=== PATIENT | male | born 1975 | race African-American/Black ===

== ENCOUNTER 2016-04-06 22:15 | Emergency (ER) | payer OTHER ==
[2016-04-07 00:20] LABS: ABSOLUTE BASOPHILS # (AUTO) 0.1 10^3/uL (0.0-0.2); ABSOLUTE EOSINOPHILS # (AUTO) 0.3 10^3/uL (0.0-0.6); ABSOLUTE LYMPHOCYTES (AUTO) 2.4 10^3/uL (0.5-4.7); ABSOLUTE MONOCYTES (AUTO) 0.6 10^3/uL (0.1-1.4); ABSOLUTE NEUT (AUTO) 6.5 10^3/uL (1.7-8.2); BASOPHILS % (AUTO) 0.7 % (0-2); HEMATOCRIT 47.8 % (37.9-51.0); HEMOGLOBIN 15.8 g/dL (13.5-17.0); HGB HCT DIFFERENCE -0.4; LYMPHOCYTES % (AUTO) 24.7 % (13-45); MEAN CORPUSCULAR HEMOGLOBIN 31.9 pg (27.0-33.4); MEAN CORPUSCULAR HGB CONC 33.2 g/dL (32.0-36.0); MEAN CORPUSCULAR VOLUME 96 fl (80-97); MONOCYTES % (AUTO) 5.7 % (3-13); RED BLOOD COUNT 4.97 10^6/uL (4.35-5.55); RED CELL DISTRIBUTION WIDTH 13.2 % (11.5-14.0); SEGMENTED NEUTROPHILS % (AUTO) 65.9 % (42-78); WHITE BLOOD COUNT 9.8 10^3/uL (4.0-10.5)
[2016-04-07 00:30] LABS: ALANINE AMINOTRANSFERASE 22 U/L (21-72); ALBUMIN 5.2 g/dL (3.5-5.0); ALKALINE PHOSPHATASE 115 U/L (38-126); ANION GAP 17 (5-19); ASPARTATE AMINO TRANSFERASE 20 U/L (17-59); BILIRUBIN,TOTAL 2.1 mg/dL (0.2-1.3); BLOOD UREA NITROGEN 12 mg/dL (7-20); CALCIUM 10.2 mg/dL (8.4-10.2); CARBON DIOXIDE 28 mmol/L (22-30); CHLORIDE 102 mmol/L (98-107); CREATININE RESULT 0.98 mg/dL (0.52-1.25); GLUCOSE 83 mg/dL (75-110); POTASSIUM 3.7 mmol/L (3.6-5.0); SODIUM 147.4 mmol/L (137-145); TOTAL PROTEIN 7.9 g/dL (6.3-8.2)
[2016-04-07 00:34] LABS: ALCOHOL < 10 mg/dL (NONE DETECTED)
[2016-04-07 00:52] LABS: APPEARANCE,URINE SLIGHTLY-CLOUDY; BILIRUBIN,URINE SMALL (NEGATIVE); GLUCOSE, URINE NEGATIVE (NEGATIVE); KETONES,URINE 20 mg/dL (NEGATIVE); LEUKOCYTE ESTERASE,URINE MODERATE (NEGATIVE); NITRITE,URINE NEGATIVE (NEGATIVE); PROTEIN,URINE 30 mg/dL (NEGATIVE); URINE SPECIFIC GRAVITY 1.029
--- NOTE | 2016-04-07 01:04 | ER Document Report ---
ED General - General Chief Complaint: Psych Problem Stated Complaint: PSYCH EVAL Time seen by provider: 01:03 Mode of Arrival: Ambulatory Information source: Patient Notes: This is a 41-year-old man with a history of schizophrenia (as reported by sister , on no meds currently) brought in by mobile crisis because of suicidal ideation , plans to kill himself (run in front of traffic or jump in the river). Patient states that he got an argument with his parents (he lives with them) and "the word kill came up in the discussion". Patient states he walked out of the house could as he was afraid that he was going to do something because of his "anger". Mobile blasting worker at the bedside: Rubi Schaefer: [phone] TRAVEL OUTSIDE OF THE [place] IN LAST 30 DAYS: No - HPI Onset: Last week Onset/Duration: Gradual Quality of pain: No pain Severity: None Pain Level: Denies Associated symptoms: denies: Chills, Fever, Shortness of breath Exacerbated by: Denies Relieved by: Denies Similar symptoms previously: Yes Recently seen / treated by doctor: No - Related Data Allergies/Adverse Reactions: No Known Allergies Allergy (Verified 08/26/12 22:18) Past Medical History - General Information source: Patient - Social History Smoking Status: Current Every Day Smoker Cigarette use (# per day): No Chew tobacco use (# tins/day): No Frequency of alcohol use: Rare Drug Abuse: Marijuana Lives with: Family Family History: Reviewed & Not Pertinent Patient has suicidal ideation: Yes Patient has homicidal ideation: Yes - Medical History Medical History: Negative Psychiatric Medical History: Reports: Hx Depression, Hx Schizophrenia Surgical Hx: Negative - Immunizations Immunizations up to date: Yes Hx Diphtheria, Pertussis, Tetanus Vaccination: Yes Review of Systems - Review of Systems Constitutional: denies: Chills, Fever EENT: No symptoms reported Cardiovascular: No symptoms reported Respiratory: No symptoms reported Gastrointestinal: No symptoms reported Genitourinary: No symptoms reported Male Genitourinary: No symptoms reported Musculoskeletal: No symptoms reported Skin: No symptoms reported Hematologic/Lymphatic: No symptoms reported Neurological/Psychological: See HPI Physical Exam - Vital signs Vitals: Temp Pulse Resp BP Pulse Ox 98.6 F 60 16 158/106 H 97 04/06/16 22:31 04/06/16 22:31 04/06/16 22:31 04/06/16 22:31 04/06/16 22:31 Notes: Physical exam: GENERAL: HEAD: Atraumatic, normocephalic. EYES: Pupils equal round and reactive to light, extraocular movements intact, sclera anicteric, conjunctiva are normal. ENT: TMs normal, nares patent, oropharynx clear without exudates. Moist mucous membranes. NECK: Normal range of motion, supple without lymphadenopathy or JVD. LUNGS: Breath sounds clear to auscultation bilaterally and equal. No wheezes rales or rhonchi. HEART: Regular rate and rhythm without murmurs, rubs or gallops. ABDOMEN: Soft, nontender, normoactive bowel sounds. No guarding, no rebound. No masses appreciated. EXTREMITIES: Normal range of motion, no pitting or edema. No clubbing or cyanosis. NEUROLOGICAL: Cranial nerves II through XII grossly intact. Normal speech, normal gait. PSYCH: Patient has been having paranoid thoughts, problem with anger. [facility] notes that the patient has had suicidal thoughts. SKIN: Warm, Dry, normal turgor, no rashes or lesions noted. Course - Re-evaluation Re-evalutation: The patient was brought in by [facility] for evaluation. The patient has been agreeable for evaluation, so he is not an IVC at this point. 04/07/16 03:08 04/07/16 03:09 Note: The patient's labs are normal. His urine sample looked dark. It did not look like a midstream clean catch. He does not have any symptoms of a UTI. The plan will be to repeat a urine specifically for Chlamydia. - Vital Signs Vital signs: Temp Pulse Resp BP Pulse Ox 98.6 F 60 16 158/106 H 97 04/06/16 22:31 04/06/16 22:31 04/06/16 22:31 04/06/16 22:31 04/06/16 22:31 - Laboratory Result Diagrams: 04/07/16 00:05 04/07/16 00:05 Laboratory results interpreted by me: 04/07/16 04/07/16 00:05 00:25 Sodium 147.4 H Total Bilirubin 2.1 H Albumin 5.2 H Urine Protein 30 H Urine Ketones 20 H Urine Blood MODERATE H Urine Bilirubin SMALL H Urine Urobilinogen 2.0 H Ur Leukocyte Esterase MODERATE H Salicylates < 1.0 L Acetaminophen < 10 L - EKG Interpretation by Me Rate: Normal Rhythm: NSR - EKG shows normal sinus rhythm with a ventricular rate of 64, no acute ST-T wave changes Discharge - Discharge Clinical Impression: mood disorder NOS Condition: Stable Disposition: PSYCH HOSP/UNIT
[2016-04-07] MEDS ORDERED: ALPRAZOLAM 0.5 MG TABLET PO PRN (01:08)
--- NOTE | 2016-04-07 07:20 | EKG REPORT ---
SEVERITY:- NORMAL ECG - SINUS RHYTHM : Confirmed by: Mariajose Metcalf MD 07-Apr-2016 07:19:46
[2016-04-07 08:45] LABS: CHLAM PCR NOT DETECTED (NOT DETECT)
[2016-04-07 11:48] LABS: APPEARANCE,URINE CLEAR; BILIRUBIN,URINE NEGATIVE (NEGATIVE); GLUCOSE, URINE NEGATIVE (NEGATIVE); KETONES,URINE 20 mg/dL (NEGATIVE); LEUKOCYTE ESTERASE,URINE TRACE (NEGATIVE); NITRITE,URINE NEGATIVE (NEGATIVE); PROTEIN,URINE 30 mg/dL (NEGATIVE); URINE SPECIFIC GRAVITY 1.021
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
[2016-04-07] MEDS ORDERED: BENZTROPINE MESYLATE 1 MG TABLET PO SCH (12:45)
--- NOTE | 2016-04-07 13:32 | ER Document Report ---
Doctor's Note Notes: 04/07/16 13:29 Rounds: Chart reviewed, the patient not interviewed because he was talking with mental health provider earlier when I made rounds. Now, the patient is sleeping. Patient has a history of schizophrenia. Is here because he has expressed suicidal thoughts. Vital signs of been essentially normal. Blood pressure 154/94. Initial labs showed his urine to have moderate leukocyte esterase and 51 WBCs and trace bacteria. I've ordered a repeat urinalysis and urine culture. Patient's bilirubin is 2.1, but other LFTs are normal. I don't think that that small elevation in early [place] is of any clinical significance and could be attributable to medications, alcohol, etc. Patient appears to be medically stable for transfer or discharge. Eduardo Silveira M.D. 04/07/16 14:21 Patient repeat urinalysis this morning looks essentially normal. I'm not, treating with any antibiotics. A culture should be pending. Eduardo Silveira M.D. 04/07/16 19:43 Patient's blood pressure has been persistently elevated and rising throughout the afternoon and evening so I am starting him on lisinopril 20 mg now and tomorrow morning to begin 10 mg daily +12.5 mg daily of hydrochlorothiazide.
[2016-04-07 17:48] LABS: URINE BARBITURATES SCREEN NEGATIVE; URINE METHADONE SCREEN NEGATIVE; URINE PHENCYCLIDINE SCREEN NEGATIVE
[2016-04-07] MEDS: HALOPERIDOL 5 MG TABLET PO SCH (18:01)
[2016-04-07] MEDS ORDERED: LISINOPRIL 10 MG TABLET PO ONE (19:40)
[2016-04-07] MEDS ORDERED: DIPHENHYDRAMINE HCL 25 MG CAPSULE ONE (22:20)
[2016-04-07] MEDS: DIPHENHYDRAMINE HCL 50 MG CAPSULE PO SCH (22:33)
[2016-04-08] MEDS ORDERED: LISINOPRIL 10 MG TABLET PO SCH (08:00)
[2016-04-08] MEDS ORDERED: HYDROCHLOROTHIAZIDE 12.5 MG CAPSULE PO SCH (08:00)
--- NOTE | 2016-04-08 10:16 | ER Document Report ---
Doctor's Note Notes: 04/08/16 10:13 Rounds: Chart reviewed and patient interviewed. Patient is being evaluated for chronic condition of schizophrenia and additional diagnosis of suicidal ideation. Patient says he doesn't feel as suicidal as he did, but does still feel as if he might hurt someone else (his parents). Vital signs are normal this morning. Patient has a history of hypertension. His blood pressure was gradually increasing last evening so I started him on lisinopril 20 mg by mouth last night and then lisinopril and HCTZ to begin this morning. Blood pressure this morning is 133/83. Lab studies were normal except for being positive for marijuana. Patient's repeat urinalysis was essentially normal. Also, after 24 hours, his urine culture is not growing any bacteria. Therefore, he is not going to be treated with antibiotics for that first urinalysis. Patient has been started on Haldol 5 mg twice a day. Patient appears medically stable for transfer or discharge. Eduardo Silveira M.D.
[2016-04-08] MEDS ORDERED: NICOTINE 21 MG/24 HR PATCH.TD24 TD PRN (13:58)
[2016-04-08] MEDS: HALOPERIDOL 5 MG TABLET PO SCH (18:53)
[2016-04-08] MEDS: DIPHENHYDRAMINE HCL 50 MG CAPSULE PO SCH (22:36)
[2016-04-09] MEDS ORDERED: LISINOPRIL 10 MG TABLET PO SCH (10:00)
[2016-04-09] MEDS ORDERED: HYDROCHLOROTHIAZIDE 12.5 MG CAPSULE PO SCH (10:00)
--- NOTE | 2016-04-09 10:15 | ER Document Report ---
Doctor's Note Notes: 04/09/16 10:14 Rounds: Chart reviewed and patient interviewed. Patient says he doesn't feel any better. Vital signs are normal. His thought processes seem to be normal this morning. Denies feeling suicidal. Slept well after getting his medications last evening. Patient has an appointment to be seen at [facility] at 11 AM this morning. Patient is felt to be medically stable for discharge. Eduardo Silveira M.D.
[2016-04-09 10:25] VITALS: BP 138/89
--- NOTE | 2016-04-09 12:37 | PSYCHOLOGICAL NOTE ---
Psych Note - Psych Note Psych Note: Conducted a check in with patient patient states he is no longer suicidal but was when he first came in. Patient became somewhat evasive when asked if he had a plan but disclosed he thought about jumping into the river or stepping in front of the big vehicle. He disclosed that he does not like pain and was trying to think of ways that would be quick however there really is not one. Patient disclosed continued persecutory delusions stating he has difficulty with "whites, JPD, and Masons." He continued to disclose multiple examples of how he's been wronged. He continued disclose his sister is his psychiatrist and that he just had a panic attack in the last hour. Patient explained when he is "forced into an episode" he has a panic attack however he was unable to clearly communicate what the episode was tormenting him. Patient was able to identify the panic attack by his "chest pain." Patient's father, Mr. Rivera states: [phone] mail box full, unable to leave message. Patient is alert and orientated to person place time and circumstance. Mood is euthymic with congruent affect. Patient denies auditory of visual hallucinations; persecutory delusions are noted. Thought processes were a little disorganized. Conversational speech was within normal range for rate, tone, and prosody. Intellectual abilities were estimated within average range. Attention and focus were fair however it is noted patient attempts to control conversation by redirection. Insight, judgment, and impulse control were fair. 289.9 (F29) Unspecified Schizophrenia spectrum and other psychotic disorder Patient's presenting symptoms are similar to that of a psychotic disorder and cause clinically significant distress in all domains of his life At this time and in this setting there is not enough information to make a more specific diagnosis (eg Schizoaffective Disorder vs Schizophrenia vs Substance Induced) 292.9 (F12.99) Unspecified Cannabis Use Disorder Patient's presenting symptoms are similar to that of a cannabis use disorder and cause clinically significant distress in all domains of his life At this time and in this setting, there is not enough information to make a more specific diagnosis. Impression\\plan: Patient is recommended for rescind of IVC and is psychiatrically cleared for discharge. Patient has an appointment with [facility] today at 11:00. Patient denies suicidal or homicidal ideation. Some persecutory delusions are noted however these delusions do not cause harm to the patient or others. Patient does demonstrate some symptoms that could be somatic in nature however it is unclear at this time a secondary gain. Dr. Rehman was consulted on this patient attending physician is in agreement with recommendations and disposition.
== END 2016-04-09 10:25 | disposition home or self-care (01) ==
LOC: ER 22:15
DX: F39 Unspecified mood [affective] disorder (principal); R45.851 Suicidal ideations; F17.200 Nicotine dependence, unspecified, uncomplicated; R45.850 Homicidal ideations; F20.9 Schizophrenia, unspecified; F12.99 Cannabis use, unspecified with unspecified cannabis-induced disorder
CPT/HCPCS: 36415; 80053; 80307; 81001; 85025; 87086; 87491; 87591; 93005; 93010; 99285

== ENCOUNTER 2016-04-09 20:17 | Emergency (ER) | payer SELFPAY ==
--- NOTE | 2016-04-09 21:54 | ER Document Report ---
Addendum entered and electronically signed by ESTHELA OAKLEY PA-C 04/09/16 22: 01: Course - Re-evaluation Re-evalutation: 04/09/16 22:01 denies any drug or etoh use today, admits to cigarettes. - Vital Signs Vital signs: Temp Pulse Resp BP Pulse Ox 98.2 F 65 16 118/70 98 04/09/16 21:27 04/09/16 21:27 04/09/16 21:27 04/09/16 21:27 04/09/16 21:27 Original Note: ED Medical Screen (RME) - General Stated Complaint: PSYCH EVAL Notes: patient is a 41 year old male who returns to the ED for SI's and HI's. He was discharged this am around 9-10am after a 4 day stay and he was sent to [employer] where he complete paperwork and was set up for vocational human services. He was starting to have SI's and returned to [facility] to speak with a therapist, left around 2pm. Patient is homeless. plan for SI- pills and trying to over dose, such as sleeping pills. TRAVEL OUTSIDE OF THE [place] IN LAST 30 DAYS: No - Related Data Allergies/Adverse Reactions: No Known Allergies Allergy (Verified 04/09/16 21:52) Past Medical History Psychiatric Medical History: Reports: Hx Depression, Hx Schizophrenia - Immunizations Immunizations up to date: Yes Hx Diphtheria, Pertussis, Tetanus Vaccination: Yes Physical Exam - Vital signs Vitals: Temp Pulse Resp BP Pulse Ox 98.2 F 65 16 118/70 98 04/09/16 21:27 04/09/16 21:27 04/09/16 21:27 04/09/16 21:27 04/09/16 21:27 Course - Vital Signs Vital signs: Temp Pulse Resp BP Pulse Ox 98.2 F 65 16 118/70 98 04/09/16 21:27 04/09/16 21:27 04/09/16 21:27 04/09/16 21:27 04/09/16 21:27
--- NOTE | 2016-04-09 23:49 | ER Document Report ---
ED Psych Disorder / Suicide - General Mode of Arrival: Ambulatory Information source: Patient TRAVEL OUTSIDE OF THE [place] IN LAST 30 DAYS: No - HPI Patient complains to provider of: Homicidal ideation, Suicidal ideation, Suicidal plan Onset: Just prior to arrival Suicide Risk Factors: Male, Organized plan Situational problems related to: Other - see above Associated symptoms: Other - see above <SHARA RIVERS - Last Filed: 04/10/16 01:33> <RADHA FRIAS - Last Filed: 04/10/16 04:52> - General Chief Complaint: Psych Problem Stated Complaint: PSYCH EVAL Notes: 41 year old male with history of suicidal ideation (seen in the ED on 04/06/2016 ), depression, and schizophrenia presents to the ED with suicidal and homicidal ideation that started this evening. Patient planned to commit suicide via jumping into a miller, stepping out into traffic, or overdosing on over the counter medication. Patient states that he "doesn't like pain", so he would have over dosed. Patient denies taking any medication tonight. Patient states that he was having a "mental breakdown" because of lifestyle changes and being "triggered" when seeing a particular ED employee. Patient has talked to [facility] and the suicidal hotline today and states that he feels better when talking to someone. Patient explains that he is homeless and alone and this exacerbates his suicidal thoughts. Patient explains that this is his second attempt at trying to commit himself for mental health evaluation. (SHARA RIVERS) - Related Data Allergies/Adverse Reactions: No Known Allergies Allergy (Verified 04/09/16 21:52) Past Medical History - General Information source: Patient - Social History Smoking Status: Current Every Day Smoker Chew tobacco use (# tins/day): No Frequency of alcohol use: None Drug Abuse: None Family History: Reviewed & Not Pertinent Patient has suicidal ideation: Yes Patient has homicidal ideation: Yes Psychiatric Medical History: Reports: Hx Depression, Hx Schizophrenia - Immunizations Immunizations up to date: Yes Hx Diphtheria, Pertussis, Tetanus Vaccination: Yes <SHARA RIVERS - Last Filed: 04/10/16 01:33> Review of Systems - Review of Systems Constitutional: No symptoms reported EENT: No symptoms reported Cardiovascular: No symptoms reported Respiratory: No symptoms reported Gastrointestinal: No symptoms reported Genitourinary: No symptoms reported Male Genitourinary: No symptoms reported Musculoskeletal: No symptoms reported Skin: No symptoms reported Hematologic/Lymphatic: No symptoms reported Neurological/Psychological: See HPI, Homicidal ideation, Suicidal ideation -: Yes All other systems reviewed and negative <SHARA RIVERS - Last Filed: 04/10/16 01:33> Physical Exam - Vital signs Interpretation: Normal - General General appearance: Alert In distress: None - HEENT Head: Normocephalic, Atraumatic Eyes: Normal Extraocular movements intact: Yes Pupils: PERRL - Respiratory Respiratory status: No respiratory distress Breath sounds: Normal - Cardiovascular Rhythm: Regular Heart sounds: Normal auscultation - Abdominal Inspection: Normal - Back Back: Normal - Extremities General upper extremity: Normal inspection, Normal ROM General lower extremity: Normal inspection, Normal ROM - Neurological Neuro grossly intact: Yes Cognition: Normal Orientation: AAOx4 Arnold Coma Scale Eye Opening: Spontaneous Keven Coma Scale Verbal: Oriented Arnold Coma Scale Motor: Obeys Commands Keven Coma Scale Total: 15 Speech: Normal - Psychological Associated symptoms: Normal affect, Normal mood - Skin Skin Temperature: Warm Skin Moisture: Dry Skin Color: Normal <SHARA RIVERS - Last Filed: 04/10/16 01:33> <RADHA FRIAS - Last Filed: 04/10/16 04:52> - Vital signs Vitals: Temp Pulse Resp BP Pulse Ox 98.2 F 65 16 118/70 98 04/09/16 21:27 04/09/16 21:27 04/09/16 21:27 04/09/16 21:27 04/09/16 21:27 (SHARA RIVERS) (RADHA FRIAS) Course - Laboratory Result Diagrams: 04/10/16 00:41 04/10/16 00:41 <SHARA RIVERS - Last Filed: 04/10/16 01:33> - Laboratory Result Diagrams: 04/10/16 00:41 04/10/16 00:41 <RADHA FRIAS - Last Filed: 04/10/16 04:52> - Re-evaluation Re-evalutation: 04/10/16 Patient states that he is suicidal and homicidal this evening. Patient states that he had a plan to jump off a bridge or take an overdose of medication her walking to traffic. Patient was recently released. Urine cultures have been reviewed with no growth. Patient is medically stable. Evaluate by mental health in the morning. (RADHA FRIAS) - Vital Signs Vital signs: Temp Pulse Resp BP Pulse Ox 98.0 F 78 18 139/88 H 96 04/10/16 01:16 04/10/16 01:16 04/10/16 01:16 04/10/16 01:16 04/10/16 01:16 (SHARA RIVERS) (RADHA FRIAS) - Laboratory Laboratory results interpreted by me: 04/10/16 04/10/16 00:41 00:41 Sodium 145.1 H Glucose 136 H Total Bilirubin 1.5 H ALT 17 L Urine Protein 30 H Urine Ketones 20 H Urine Blood MODERATE H Urine Urobilinogen 2.0 H Ur Leukocyte Esterase SMALL H Salicylates < 1.0 L Acetaminophen < 10 L (RADHA FRIAS) Discharge <SHARA RIVERS - Last Filed: 04/10/16 01:33> <RADHA FRIAS - Last Filed: 04/10/16 04:52> - Discharge Clinical Impression: Suicidal ideation Condition: Stable Disposition: OTHER Scribe Attestation: 04/10/16 04:52 I personally performed the services described in the documentation, reviewed and edited the documentation which was dictated to the scribe in my presence, and it accurately records my words and actions. (RADHA FRIAS)
[2016-04-10 00:52] LABS: ABSOLUTE BASOPHILS # (AUTO) 0.1 10^3/uL (0.0-0.2); ABSOLUTE EOSINOPHILS # (AUTO) 0.3 10^3/uL (0.0-0.6); ABSOLUTE LYMPHOCYTES (AUTO) 2.4 10^3/uL (0.5-4.7); ABSOLUTE MONOCYTES (AUTO) 0.5 10^3/uL (0.1-1.4); ABSOLUTE NEUT (AUTO) 4.6 10^3/uL (1.7-8.2); BASOPHILS % (AUTO) 0.7 % (0-2); EOSINOPHILS % (AUTO) 3.9 % (0-6); HEMOGLOBIN 16.5 g/dL (13.5-17.0); HGB HCT DIFFERENCE -0.5; LYMPHOCYTES % (AUTO) 31.2 % (13-45); MEAN CORPUSCULAR HEMOGLOBIN 31.7 pg (27.0-33.4); MEAN CORPUSCULAR VOLUME 96 fl (80-97); MONOCYTES % (AUTO) 6.1 % (3-13); RED BLOOD COUNT 5.21 10^6/uL (4.35-5.55); RED CELL DISTRIBUTION WIDTH 13.3 % (11.5-14.0); SEGMENTED NEUTROPHILS % (AUTO) 58.1 % (42-78); WHITE BLOOD COUNT 7.8 10^3/uL (4.0-10.5)
[2016-04-10 01:03] LABS: APPEARANCE,URINE SLIGHTLY-CLOUDY; BILIRUBIN,URINE NEGATIVE (NEGATIVE); GLUCOSE, URINE NEGATIVE (NEGATIVE); KETONES,URINE 20 mg/dL (NEGATIVE); LEUKOCYTE ESTERASE,URINE SMALL (NEGATIVE); NITRITE,URINE NEGATIVE (NEGATIVE); PROTEIN,URINE 30 mg/dL (NEGATIVE); URINE SPECIFIC GRAVITY 1.028
[2016-04-10 01:18] LABS: ALANINE AMINOTRANSFERASE 17 U/L (21-72); ALKALINE PHOSPHATASE 98 U/L (38-126); ANION GAP 15 (5-19); ASPARTATE AMINO TRANSFERASE 20 U/L (17-59); BILIRUBIN,TOTAL 1.5 mg/dL (0.2-1.3); BLOOD UREA NITROGEN 15 mg/dL (7-20); CALCIUM 10.1 mg/dL (8.4-10.2); CARBON DIOXIDE 29 mmol/L (22-30); CHLORIDE 101 mmol/L (98-107); CREATININE RESULT 0.95 mg/dL (0.52-1.25); GLUCOSE 136 mg/dL (75-110); POTASSIUM 3.7 mmol/L (3.6-5.0); SODIUM 145.1 mmol/L (137-145); TOTAL PROTEIN 7.8 g/dL (6.3-8.2)
[2016-04-10 01:19] LABS: ALCOHOL < 10 mg/dL (NONE DETECTED)
[2016-04-10 01:30] LABS: URINE BARBITURATES SCREEN NEGATIVE; URINE METHADONE SCREEN NEGATIVE; URINE PHENCYCLIDINE SCREEN NEGATIVE
[2016-04-10] MEDS ORDERED: OLANZAPINE 5 MG TAB.RAPDIS PO ONE (01:36)
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
[2016-04-10 11:08] VITALS: BP 115/68
--- NOTE | 2016-04-10 14:50 | EKG REPORT ---
SEVERITY:- NORMAL ECG - SINUS RHYTHM : Confirmed by: Boubacar Arias 10-Apr-2016 14:49:59
== END 2016-04-10 11:00 | disposition other institution (70) ==
LOC: ER 20:17
DX: R45.851 Suicidal ideations (principal); R45.850 Homicidal ideations; F31.9 Bipolar disorder, unspecified; F17.210 Nicotine dependence, cigarettes, uncomplicated
CPT/HCPCS: 93005; 99285; 36415; 80307 ×4; 85025; 80053; 81001; 93010; J3490